=== PATIENT | female | born 1965 | race Caucasian/White ===

== ENCOUNTER → 2016-09-01 | Outpatient (CLI) | payer BC ==
--- NOTE | 2016-09-01 09:36 | MA ---
Diagnostic Digital Right Mammography Clinical History: 51-year-old female who presents for likely benign parenchymal findings seen in the upper outer right breast with no prior sonographic correlate. The patient's family history is notable only for a great aunt with breast cancer in her 50s. Technique: Digital CC and MLO views of the right breast are compared with previous studies dated January 03, 2016, December 31, 2015, and July 28, 2012. This examination was processed by the [employer] d detection system. Breast Density: Type B. CAD Evaluation: Reviewed. Findings: There is a moderately dense heterogeneous residual fibroglandular pattern, which is reassur ingly stable when compared to studies dating back to July 28, 2012. There is no focal neodensity. There are no suspicious clustered microcalcifications. Impression: Benign mammography. BI-RADS Category: 2. Recommendation: Routine bilateral mammographic follow up in December 2016.
== END ==
LOC: BRMIMAGING 09:04
DX: R92.8 Other abnormal and inconclusive findings on diagnostic imaging of breast (principal)
CPT/HCPCS: G0206

== ENCOUNTER → 2017-05-18 | Outpatient (CLI) | payer BC | LOC: BRMIMAGING 14:04 | PROVIDERS: ATTEND Family Medicine | DX: Z12.31 Encounter for screening mammogram for malignant neoplasm of breast (principal) | CPT/HCPCS: G0202 ==

== ENCOUNTER → 2017-12-17 | Outpatient (CLI) | payer BC | LOC: BRMIMAGING 13:20 | PROVIDERS: ATTEND Family Medicine | DX: M79.642 Pain in left hand (principal) | CPT/HCPCS: 73130-PO ==

== ENCOUNTER → 2018-06-16 | Outpatient (CLI) | payer BC | LOC: BRMIMAGING 11:04 | PROVIDERS: ATTEND Family Medicine | DX: Z12.31 Encounter for screening mammogram for malignant neoplasm of breast (principal) ==

== ENCOUNTER → 2018-06-20 | Outpatient (CLI) | payer BC | LOC: BRMIMAGING 09:30 | PROVIDERS: ATTEND Family Medicine | DX: N60.02 Solitary cyst of left breast (principal) | CPT/HCPCS: 76641-PO ==